=== PATIENT | female | born 1960 | race Caucasian/White ===

== ENCOUNTER 2020-03-29 12:03 | Inpatient (IN) | payer OTHER ==
[~2020-03-29] VITALS: Ht 162.6 cm; Wt 66.2 kg
[2020-03-29 12:08] VITALS: Ht 162.6 cm; Wt 66.2 kg
[2020-03-29 12:53] LABS: CALCIUM 9.5 mg/dL (8.5-10.1); CARBON DIOXIDE 23.8 mmol/L (21-32); CREATININE SERUM 1.1 mg/dL (0.6-1.0); POTASSIUM SERUM 3.6 mmol/L (3.5-5.1)
[2020-03-29 12:57] LABS: ALBUMIN 4.5 g/dL (3.4-5.0); BASOPHIL % 0.4 % (0-2); BILIRUBIN TOTAL 0.8 mg/dL (0.20-1.00); PLATELET COUNT 235 x10^3mcL (130-400); RED CELL DISTRIBUTION WIDTH 13.3 % (11.5-14.5); TOTAL PROTEIN, SERUM 7.8 g/dL (6.4-8.2)
[2020-03-29 14:28] LABS: MAGNESIUM 2.2 mg/dL (1.8-2.4); PHOSPHOROUS 3.5 mg/dL (2.5-4.9)
[2020-03-29 14:30] LABS: CHOLESTEROL/HDL RATIO 3.4
[2020-03-29] MEDS ORDERED: FISH OIL1000 MG PO (14:45)
[2020-03-29] MEDS ORDERED: [UNRECOGNIZED DRUG - REMARK] PO (14:45)
[2020-03-29] MEDS ORDERED: THE MEDICINE S400 I1 PO (14:46)
[2020-03-29 14:48] LABS: T3 TOTAL 1.35 ng/mL
[2020-03-29 15:13] LABS: FREE T4 1.19 ng/dL (0.76-1.46); FREE THYROXINE INDEX 3.5 ug/dL (1.4-4.5); T4(THYROXINE) 11.9 ug/dL (4.7-13.3)
[2020-03-29 16:42] VITALS: BP 120/78
[2020-03-29 20:30] VITALS: BP 137/77
[2020-03-30 06:20] VITALS: BP 106/61
[2020-03-30 06:46] LABS: CALCIUM 8.8 mg/dL (8.5-10.1); CARBON DIOXIDE 21.1 mmol/L (21-32); CHLORIDE SERUM 110 mmol/L (98-107); CREATININE SERUM 0.9 mg/dL (0.6-1.0); GFR1 > 60 mL/min; GLUCOSE SERUM 87 mg/dL (74-106); POTASSIUM SERUM 4.5 mmol/L (3.5-5.1); SODIUM SERUM 143 mmol/L (136-145)
[2020-03-30 06:54] LABS: BASOPHIL % 0.7 % (0-2); PLATELET COUNT 213 x10^3mcL (130-400); RED CELL DISTRIBUTION WIDTH 13.4 % (11.5-14.5)
[2020-03-30 07:53] VITALS: BP 119/64
[2020-03-30] MEDS ORDERED: METP PO (10:48)
[2020-03-30] MEDS ORDERED: COL100 PO (10:48)
[2020-03-30 11:22] VITALS: BP 109/63
[2020-03-30 16:33] VITALS: BP 112/50
== END 2020-03-30 18:27 | disposition home or self-care (01) | DRG 395 ==
LOC: ED 12:03 → DU 14:07
PROVIDERS: Emergency Medicine; Internal Medicine Gastroenterology; ADMIT Internal Medicine
PROC: 0DB68ZX Excision of Stomach, Via Natural or Artificial Opening Endoscopic, Diagnostic (ICD-10-PCS; principal; 2020-03-30 09:00)
PROC: 0DJD8ZZ Inspection of Lower Intestinal Tract, Via Natural or Artificial Opening Endoscopic (ICD-10-PCS; 2020-03-30 09:00)
DX: K64.8 Other hemorrhoids (principal); K42.9 Umbilical hernia without obstruction or gangrene; K57.30 Diverticulosis of large intestine without perforation or abscess without bleeding
CPT/HCPCS: 43235; 45378; 84439; G0378; J1200; J1610; J2250; J2310; J3010; J3490; J7030; Q0092